=== PATIENT | male | born 1975 | race Caucasian/White ===

== ENCOUNTER 2025-02-13 13:27 | Emergency (ER) | payer BC ==
[~2025-02-13] VITALS: Ht 180.3 cm; Wt 72.6 kg
[2025-02-13 13:49] VITALS: TEMP 97.9
[2025-02-13] MEDS ORDERED: KETOROLAC TROMETHAMINE 15 MG/ML VIAL ONE (14:00)
[2025-02-13] MEDS ORDERED: TDAP [DIPH/PERTUSSIS/TET] 0.5 ML VIAL IM ONE (14:00)
[2025-02-13] MEDS: TDAP [DIPH/PERTUSSIS/TET] 0.5 ML VIAL IM ONE (14:08)
[2025-02-13] MEDS: KETOROLAC TROMETHAMINE 15 MG/ML VIAL IM ONE (14:09)
[2025-02-13] MEDS ORDERED: SULF1TAB48 PO (14:21)
[2025-02-13] MEDS ORDERED: MUPI22OI7 TP (14:21)
[2025-02-13] MEDS ORDERED: CEPH-570 PO (14:43)
[2025-02-13 15:04] VITALS: BP 142/82; O2SAT 98
== END 2025-02-13 14:53 | disposition home or self-care (01) ==
LOC: ER 13:45
DX: S61.212A Laceration without foreign body of right middle finger without damage to nail, initial encounter (principal); W26.8XXA Contact with other sharp object(s), not elsewhere classified, initial encounter; Y93.G1 Activity, food preparation and clean up; Y92.89 Other specified places as the place of occurrence of the external cause; Y99.9 Unspecified external cause status
CPT/HCPCS: 99284; 90471; 11730; 90715; 73130; 96372; J1885; A6403 ×2; A6223